=== PATIENT | female | born 1985 | race Caucasian/White ===

== ENCOUNTER 2021-08-02 16:30 | Emergency (ER) | payer MEDICAID, SELFPAY ==
[2021-08-02 16:32] VITALS: BP 117/79; PULSE 68; RESP 15; TEMP 36.6; O2SAT 98; BMI 24.7
--- NOTE | 2021-08-02 19:05 | CT_ITS ---
STUDY: CT ABDOMEN AND PELVIS WITHOUT CONTRAST REASON FOR EXAM: Female, 36 years old. Pain RADIATION DOSAGE (If Supplied By Facility): CTDIvol = ( 7.12 ) mGy, DLP = ( 368.03 ) mGycm TECHNIQUE: Transaxial images were obtained from the dome of the diaphragm to the symphysis pubis without oral contrast, and without intravenous contrast. Sagittal and coronal images were reconstructed. Individualized dose optimization techniques were used for this CT. COMPARISON: None. FINDINGS: The visualized lung bases are unremarkable. The visualized portions of the heart are within normal limits. There is hepatomegaly with diffuse hepatic enlargement. There are surgical clips in the gallbladder fossa consistent with a prior cholecystectomy. Normal spleen. Normal pancreas. Normal bilateral adrenal glands. Normal right kidney. Normal left kidney. Normal visualized stomach. Normal small intestine. Normal colon. There is non-visualization of the appendix. Normal abdominal aorta. Normal inferior vena cava. Normal retroperitoneum. Normal urinary bladder. Normal uterus. Cystic left adnexa measures up to 3.5 cm. Normal abdominal wall. Normal osseous structures. CT/Abdomen/Pelvis without Cont IMPRESSION: Prominent stool burden. Marked hepatomegaly. Cholecystectomy. Cystic right adnexa may be physiologic and can be better assessed with a pelvic ultrasound as clinically indicated. Electronically Signed: Jemal Lundberg MD at 20:45 EDT Tel , Service support ,
--- NOTE | 2021-08-02 19:06 | EDS_ITS ---
HPI History of Present Illness Chief Complaint: Fever Narrative Narrative: Patient was recently diagnosed with a UTI, she was placed on antibiotics in the form of Cipro, she has continued flank pain and dysuria she has had some subjective fevers. The flank pain is constant, sharp and stabbing. She has some referring abdominal pain with this. No upper abdominal pain. No vaginal discharge. PFSH PFSH Home Medications ciprofloxacin HCl 500 mg PO BID 08/02/21 [History Last Taken Unknown] diclofenac sodium 50 mg PO BID PRN PRN 08/02/21 [History Last Taken Unknown] polyethylene glycol 3350 [Miralax] 17 g PO TID #119 g 08/02/21 [Rx Last Taken Unknown] Allergy/AdvReac Type Severity Reaction Status Date / Time Opioids - Morphine Analogues Allergy Anaphylaxis Verified 08/02/21 16:32 Social History Smoking Status: Current every day smoker tobacco type: cigarettes ROS ROS ED ROS Narrative Past medical history: Reviewed Medications: Reviewed Social history: Noncontributory Review of systems: All systems negative except as indicated General: Subjective fevers Eyes: No visual changes ENT: No upper airway congestion, normal voice Neck: No neck pain Cardiovascular: No chest pain Respiratory: No shortness of breath or cough Gastrointestinal: Right flank pain, some abdominal pain as in HPI. Genitourinary: Dysuria Musculoskeletal: Denies myalgias no difficulty with ambulation Skin: No rash Neurological: No memory loss, confusion or any focal weakness Psych: No recent behavioral changes Hematologic: No easy bleeding or easy bruising EXAM Physical Exam Narrative Exam Narrative: Physical exam General: Patient appears uncomfortable. Head: Normocephalic, Atraumatic Eyes: Conjunctiva not pale ENT: Moist mucous membranes Neck: Supple, Nontender, No lymphadenopathy Cardiovascular: Regular rate, Regular rhythm Respiratory: No distress, CTA bilaterally Abdomen: Soft, some right lower abdominal pain. Back: Nontender, Normal Inspection. Right-sided CVA tenderness Extremities: Nontender, No edema Skin: Normal color, No rash Neurological: Alert, Normal Strength, Normal Sensation Psychological: Normal affect Const Vital Signs: 08/02/21 16:32 08/02/21 18:55 Temperature 97.8 F Temperature Source Temporal Pulse Rate 68 Respiratory Rate 15 Respiratory Effort Normal Non-Labored Respiratory Pattern Normal Blood Pressure 117/79 Blood Pressure Mean 91 Pulse Ox 98 Oxygen Delivery Method Room Air MDM MDM MDM Narrative Medical decision making narrative: Patient's work-up does not show a urinary tract infection, the CT does not show kidney stone, I does show a stool impaction. I will treat as such. I will discharge her in stable condition. Lab Data Labs: Laboratory Results - last 24 hr 08/02/21 08/02/21 08/02/21 19:03 19:14 19:14 WBC 8.3 RBC 4.17 L Hgb 13.4 Hct 40.6 MCV 97.4 MCH 32.1 H MCHC 33.0 RDW Std Deviation 46.8 H RDW Coeff of Paul 13.1 Plt Count 203 MPV 11.1 Immature Gran % (Auto) 0.400 Neut % (Auto) 70.6 H Lymph % (Auto) 20.9 [place] % (Auto) 7.1 Eos % (Auto) 0.8 Baso % (Auto) 0.2 Absolute Neuts (auto) 5.8 Absolute Lymphs (auto) 1.73 Nucleated RBC % 0 Sodium 138 Potassium 4.0 Chloride 108 H Carbon Dioxide 26.0 Anion Gap 4 L BUN 11 Creatinine 0.90 Estim Creat Clear Calc 91.18 Est GFR (MDRD) Af Amer 92 Est GFR (MDRD) Non-Af 76 BUN/Creatinine Ratio 12.3 Glucose 108 H Calcium 8.6 Total Bilirubin 0.40 AST 13 L ALT 22 Alkaline Phosphatase 66 Total Protein 6.4 Albumin 3.3 Globulin 3.1 Albumin/Globulin Ratio 1.1 Lipase 270 Urine Color Yellow Urine Clarity Sl. Cloudy Urine pH 8.0 Ur Specific [place] 1.015 Urine Protein Negative Urine Glucose (UA) Normal Urine Ketones Negative Urine Occult Blood Negative Urine Nitrite Negative Urine Bilirubin Negative Urine Urobilinogen Normal Ur Leukocyte Esterase Negative Urine RBC 0 SEEN Urine WBC 0 SEEN Ur Squamous Epith Cells 0 SEEN Urine Bacteria 0 SEEN Urine Mucus 0 SEEN Radiography Diagnostic Testing: Radiology Impression Abdomen/Pelvis CT 08/02/21 19:05 IMPRESSION: Prominent stool burden. Marked hepatomegaly. Cholecystectomy. Cystic right adnexa may be physiologic and can be better assessed with a pelvic ultrasound as clinically indicated. Electronically Signed: Jemal Lundberg MD at 20:45 EDT Tel , Service support , Discharge Plan Triage Chief Complaint: Fever ED Provider: Raul Cox Dx/Rx/DC Orders Clinical Impression: Abdominal pain, Constipation Instructions: Abdominal Pain, ED Constipation (Adult) Prescriptions: New polyethylene glycol 3350 [Miralax] 17 gram/dose powder 17 g PO TID Qty: 119 RF: 0 No Action ciprofloxacin HCl 500 mg tablet 500 mg PO BID RF: 0 diclofenac sodium 50 mg tablet,delayed release (DR/EC) 50 mg PO BID PRN PRN (Reason: Pain) RF: 0 Referrals: Julieta Hussein [Other] Disposition Disposition: Home, Self Care
[2021-08-02] MEDS: 0.9% Normal Saline 1,000 ML 1000 ML IV (19:18)
[2021-08-02 19:20] LABS: Bacteria 0 SEEN /hpf (None Seen); Mucous, Urine 0 SEEN /hpf (<or=2+); Red Blood Cells-Urine 0 SEEN /hpf (0-5); Squamous Epithelial Cells - UA 0 SEEN /hpf (5-10); White Blood Cells 0 SEEN /hpf (0-5)
[2021-08-02 19:21] LABS: Color, Urine Yellow (Yellow); Glucose, Dipstick Normal (Normal); Ketone-Dipstick Negative (Negative); Leukocyte Esterase-Dipstick Negative /ul (Negative); Nitrite-Dipstick Negative (Negative); Occult Blood-Urine Negative /ul (Negative); Protein-Dipstick Negative (Negative); Specific Gravity, Urine 1.015 (1.002-1.030); Urine Bilirubin Dipstick Negative (Negative); Urine Clarity Sl. Cloudy (Clear); Urine Urobilinogen Normal (Normal)
[2021-08-02 19:22] LABS: Absolute Lymphocyte Count 1.73 X10^3/uL (0.83-4.51); Absolute Neutrophil Count 5.8 X10^3/uL (2.0-7.7); Basophil# 0.02 X10^3/uL; Basophil% 0.2 % (0-1); Eosinophil# 0.07 X10^3/uL; Eosinophils% 0.8 % (0-5); Hematocrit 40.6 % (37-47); Hemoglobin 13.4 g/dL (12.0-15.0); Lymphocyte # 1.73 X10^3/ul (0.83-4.51); Lymphocyte % 20.9 % (19-41); Mean Corpuscular Hgb 32.1 pg (27.0-32.0); Mean Corpuscular Volume 97.4 fL (81-99); Mean Platelet Vol. 11.1 fl (6.2-12.0); Monocyte# 0.59 X10^3/uL; Monocyte% 7.1 % (0-10); NRBC Flagged by Analyzer 0 % (0-5); Neutrophil # 5.84 X10^3/uL (2.7-7.7); Neutrophil % 70.6 % (47-70); Platelet Count 203 K/mm3 (150-450); RBC Distribution Width CV 13.1 % (11.6-14.6); RBC Distribution Width SD 46.8 fl (35.1-43.9); Red Blood Count 4.17 M/mm3 (4.2-5.4); White Blood Count 8.3 K/mm3 (4.4-11.0)
[2021-08-02 19:42] LABS: ALB/GLOB Ratio 1.1 RATIO (0.9-2.4); AST(SGOT) 13 U/L (15-37); Alanine Aminotransfer ALT/SGPT 22 U/L (13-56); Albumin, Serum 3.3 g/dL (3.2-5.0); Alkaline Phosphatase 66 U/L (45-117); Anion Gap 4 (5-15); BUN 11 mg/dL (7-18); BUN/Creat Ratio 12.3 RATIO (10-20); Calcium,Total 8.6 mg/dL (8.5-10.1); Chloride 108 mmol/L (98-107); EST Glomerular Filtration Rate 76 mL/min (>60); Est Glom Filt Rate - Afr Amer 92 mL/min (>60); Estimated Creatinine Clearance 91.18 ml/min; Globulin 3.1 g/dL (2.2-4.2); Glucose 108 mg/dL (74-106); Lipase 270 U/L (73-393); Protein, Total 6.4 g/dL (6.4-8.2); Sodium Level 138 mmol/L (136-145)
== END 2021-08-02 21:22 | disposition home or self-care (01) ==
PROVIDERS: Emergency Provider Emergency Medicine
DX: R10.9 Unspecified abdominal pain (principal); K59.00 Constipation, unspecified; F17.210 Nicotine dependence, cigarettes, uncomplicated; Z79.899 Other long term (current) drug therapy; Z87.440 Personal history of urinary (tract) infections
CPT/HCPCS: 74176; 80053; 81001; 83690; 85025; 99283; J7030